=== PATIENT | female | born 1945 | race Caucasian/White ===

== ENCOUNTER → 2021-04-02 | Outpatient (CLI) | payer MEDICARE, BC ==
[~2021-04-02] MED LIST: ASPI81TA26 PO; ATOR40TA75 PO; CIPR-249 PO; CO Q10CA PO; CVS1CAP5 PO; CYMB60CA4 PO; D32000TA2 PO; DICL1GEL3 TOP; FISH100049 PO; GABA-282 PO; LEVO88TA3 PO; MONT10TA10 PO; PARO20TA3 PO; PROBCAP4 PO; ROSU20TA5 PO; ROXI1TAB2 PO; SUMA100T2 PO; TRAZ-252 PO; VANC125C10 PO; VITA500046 PO; VOLT1GEL15 TD; magnesium PO
[2021-04-07 16:08] LABS: Chitobioside Carbohydrat (ACCA 41 units (0-90); Laminaribioside Carbohyd (ALCA 18 units (0-60); Mannobioside Carbohydrat (AMCA 50 units (0-100); Saccharomyces cerevisiae IgG A 77 units (0-50)
== END ==
LOC: M LAB 13:26
PROVIDERS: ATTEND Surgery
DX: R19.7 Diarrhea, unspecified (principal)

== ENCOUNTER → 2021-04-05 | Outpatient (REF) | payer MEDICARE, BC ==
[~2021-04-05] MED LIST changes: -CVS1CAP5 PO; -D32000TA2 PO; -DICL1GEL3 TOP; -GABA-282 PO; -MONT10TA10 PO; -PARO20TA3 PO; -ROSU20TA5 PO; -SUMA100T2 PO; -TRAZ-252 PO; -VANC125C10 PO
== END ==
LOC: M LAB REF 11:07
PROVIDERS: ATTEND Physician Assistant
DX: R10.32 Left lower quadrant pain (principal)

== ENCOUNTER → 2021-04-08 | Outpatient (CLI) | payer MEDICARE, BC ==
[~2021-04-08] MED LIST changes: +CVS1CAP5 PO; +D32000TA2 PO; +DICL1GEL3 TOP; +GABA-282 PO; +MONT10TA10 PO; +PARO20TA3 PO; +ROSU20TA5 PO; +SUMA100T2 PO; +TRAZ-252 PO; +VANC125C10 PO
--- NOTE | 2021-04-08 16:19 | REP ---
INDICATION: LLQ PAIN. COMPARISON: None. TECHNIQUE: Transabdominal and transvaginal ultrasound evaluation of the pelvis was performed. FINDINGS: The uterus is surgically absent. The ovaries are not visualized. There are no abnormal pelvic masses or fluid collections. IMPRESSION: No pelvic abnormalities identified. <Electronically signed by Baron Mendez > 04/08/21 4510
== END ==
LOC: M RAD 15:05
PROVIDERS: ATTEND Surgery
DX: R10.32 Left lower quadrant pain (principal)

== ENCOUNTER → 2021-04-22 | Outpatient (CLI) | payer MEDICARE, BC | LOC: M LABSMTC 10:09 | PROVIDERS: ATTEND Anesthesiology | DX: Z01.818 Encounter for other preprocedural examination (principal); Z11.52 Encounter for screening for COVID-19 ==

== ENCOUNTER 2021-04-27 11:26 | Day surgery (SDC) | payer MEDICARE, BC ==
[~2021-04-27] VITALS: Ht 160 cm; Wt 49.2 kg
[~2021-04-27 11:26] MED LIST changes: +NS 1,000 ML IV ONE
--- OUTSIDE RECORDS SUMMARY | 2021-04-27 11:34 | CCD | Continuity of Care Document ---
Author Author Samira BROOKS Organization Unknown Address [address] [facility] [address] [place] [address] Phone [phone] Care Team Providers Care Metal Treater Name Role Phone ROSAURA BROOKS AUTM [phone] Problems Active Problems Provider Date Essential hypertension Onset: 04/01/2021 Social History Type Date Description Comments Sex Unknown ETOH Use Denies alcohol use Tobacco Use Start: Unknown Patient has never smoked Recreational Drug Use Denies Drug Use Allergies and adverse reactions Description No Known Drug Allergies Medications Active Medications SIG Qnty Indications Ordering Provide r Date Levothyroxine Sodium 100mcg Tablet s 1 by mouth every day 30tabs AMELIA Schumacher 2020 Diclofenac Sodium 1% Gel u se as needed AMELIA Schumacher 04/01/2021 Paroxetine HCL 20mg Tablets Take One Tablet By Mouth Daily Unknown Montelukast Sodium 10mg Tablets Take One Tablet By Mouth Daily Unknown Rosuvastatin Calcium 20mg Tablets Take One Tablet By Mouth Daily Unknown Trazodone HCL 50mg Tablets Take Two Tablets By Mouth Daily Unknown 0 Vital Signs Date Vital Result Comment 03/08/2021 11:29am Height 60 inches 5'0" Weight 114.00 lb BMI (Body Mass Index) 22.3 kg/m2 BP Systolic 108 mmHg BP Diastolic 72 mmHg Heart Rate 70 /min Respiratory Rate 16 /min Results Test Acquired Date Facility Test Result H/L Range Note IBD Serology 04/02/[address] [id number] [phone] Saccharomyces cerevisiae IgG A 77 units High 0 -50 1 Chitobioside Carbohydrat (Acca 41 units Normal 0-90 2 Laminaribioside Carbohyd (Alca 18 units Normal 0-60 3 Mannobioside Carbohydrat (Amca 50 units Normal 0-100 4 Atypical p-Anca Negative Normal Negative IBD Test Information (SEE NOTE) Abnormal . 5 1 Negative <45 Equivocal 45 - 50 Positive >50 2 Negative <80 Equivocal 80 - 90 Positive >90 3 Negative <55 Equivocal 55 - 60 Positive >60 4 Negative < 90 Equivocal 90 - 100 Positive >100 . This test was developed and its performance characteristics determined by [facility]. It has not been cleared or approved by the Food and Drug Administration. The FDA has determined that such clearance or approval is not necessary. 5 Suggestive of Crohn's Diseas e. Pattern is not conclusive for disease behavior risk stratification. Performed at: [address] [id number] Clinical Quality Analyst: Mckenna Middleton MD, Phone: [phone] Procedures Date Code Description Status 04/07/2021 75132 Office/Outpatient Established Lo w MDM 20-29 Min Completed 03/08/2021 66540 Office/Outpatient Established Lo w MDM 20-29 Min Completed Encounters Type Date Location Provider Dx Diagnosis Office Visit 04/07/2021 10:30a [facility] AMELIA Carrillo I10 Essential (primary) hyperten ashly E78.5 Hyperlipidemia, unspecified E03.9 Hypothyroidism, unspecified Office Visit 03/08/2021 12:00p [facility] AMELIA Carrillo R10.814 Left lower quadrant abdomina l tenderness I10 Essential (primary) hyperten ashly E03.9 Hypothyroidism, unspecified Assessments Date Code Description Provider 04/07/2021 I10 Essential (primary) hypertension AMELIA Schumacher 04/07/2021 E78.5 Hyperlipidemia, unspecified AMELIA Agee 04/07/2021 E03.9 Hypothyroidism, unspecified AMELIA Agee 03/09/2021 I10 Essential (primary) hypertension AMELIA Schumacher 03/09/2021 E78.5 Hyperlipidemia, unspecified AMELIA Agee 03/09/2021 E03.9 Hypothyroidism, unspecified AMELIA Agee 03/08/2021 R10.814 Left lower quadrant abdominal te nderness AMELIA Schumacher 03/08/2021 I10 Essential (primary) hypertension AMELIA Schumacher 03/08/2021 E03.9 Hypothyroidism, unspecified AMELIA Agee Plan of Treatment Future Appointment(s):* 07/08/2021 10:00 am - AMELIA Rice at [facility] Referrals Refer to Reason for Referral Status Appt Date Mckinley Bishop JR PATIENT WITH UNEXPLAINED SEV ERE ABDOMINAL PAIN, UNCONTROLLABLE DIARRHEA TIMES SEVERAL WEEKS GETTING WORSE. CT. ABDOMEN PELVIS NEGATIVE . PLEASE EVAL AND TREAT/SCOPE. Sent [address]26 [facility] [address] [place] [address] [phone]
--- OUTSIDE RECORDS SUMMARY | 2021-04-27 11:34 | CCD | Continuity of Care Document ---
Author Author Samira CHAWLA M.D Organization Unknown Address [address] [facility], [address] [place] [address] Phone [phone] Care Team Providers Care Supervisor Home Energy Consultant Name Role Phone Vladimir Collado AUTM AUTM Unavailable Problems Active Problems Provider Date Essential hypertension Mckinley Bishop JR, MD Onset: 03/29/20 21 Social History Type Date Description Comments Sex Unknown ETOH Use Denies alcohol use Tobacco Use Start: Unknown Denies Smoking Recreational Drug Use Denies Drug Use Allergies and adverse reactions Description No Known Drug Allergies Medications Active Medications SIG Qnty Indications Ordering Provide r Date Gabapentin 300mg Capsules 1 po bid for 1 week then tid 90caps Mckinley Bishop JR, MD 03/29/2021 Rosuvastatin Calcium 20mg Tablets every day Unknown Paroxetine HCL 20mg Tablets e very day Unknown Montelukast Sodium 10mg Tablets every day 90tabs Unknown Trazodone HCL 50mg Tablets ev flores day Unknown Euthyrox 100mcg Tablets every day Unknown Lisinopril 10mg Tablets 1 by mouth every day Unknown Immunizations Description No Information Available Vital Signs Date Vital Result Comment 04/02/2021 11:45am BP Systolic 112 mmHg BP Diastolic 56 mmHg Body Temperature 96.1 F Height 60 inches 5'0" Weight 109.25 lb BMI (Body Mass Index) 21.3 kg/m2 [place] Body Weight 100 lb Weight 49.556 kg BSA (Body Surface Area) 1.44 m2 03/29/2021 10:33am BP Systolic 118 mmHg BP Diastolic 60 mmHg Body Temperature 98.5 F Height 60 inches 5'0" Weight 112.25 lb BMI (Body Mass Index) 21.9 kg/m2 [place] Body Weight 100 lb Weight 50.917 kg BSA (Body Surface Area) 1.46 m2 Results Description No Information Available Procedures Date Code Description Status 03/29/2021 65948 Office/Outpatient New Moderate M DM 45-59 Minutes Completed Medical Devices Description No Information Available Encounters Type Date Location Provider Dx Diagnosis Office Visit 03/29/2021 10:15a [facility] Mckinley delgado JR, MD R10.32 Left lower quadrant pain Assessments Date Code Description Provider 03/29/2021 R10.32 Left lower quadrant pain Mckinley Bishop JR, MD Plan of Treatment 03/29/2021 - Mckinley Bishop JR, MD* R10.32 Left lower quadrant pain* Comments:* Patient is here for some abdominal pain and left lower quadrant at this point I am not able to determine whether this is GI related initially if she was still having the diarrhea I could explain this pain being somehow referred pain from some type of colitis or inflammatory process but without the diarrhea and without GI complaints it seems less likely that this is the etiology for this specific issue. Once again she was treated for infectious etiology and did not improve she was treated for colitis issues and this pain did not improve and thus now are stuck with pain of undetermined etiology. It is not unreasonable to proceed with an upper and lower endoscopy on her for additional testing but it seems like this is unrelated to the abdominal pain that she is having at this time. Thus I feel that a referral to the pain clinic at this point is reasonable for additional recommendations. I have instructed her that it is also reasonable if she would like to be evaluated for a second opinion although I am not sure who would be providing that i.e. GI or general surgery. She at this point is concerned about the pain and having undetermined etiology and I agree with her that it is reasonable to continue with some evaluation. I will start her on some gabapentin to see if this is associated with some unusual presentation of a herpetic neuralgia without evidence of blisters/zoster blisters. Functional Status Description No Information Available Mental Status Description No Information Available Referrals Refer to Reason for Referral Status Appt Date Mckinley Bishop JR, MD ABD PAIN Scheduled [address] [place] [phone]
--- OUTSIDE RECORDS SUMMARY | 2021-04-27 11:34 | CCD | Continuity of Care Document ---
Author Author Samira BROOKS Organization Unknown Address [address] [facility] [address] [place] [address] Phone [phone] Care Team Providers Care Occupational Health Physician Name Role Phone ROSAURA BROOKS AUTM Social History Type Date Description Comments Sex Unknown Assessments Date Code Description Provider 03/09/2021 I10 Essential (primary) hypertension AMELIA Schumacher 03/09/2021 E78.5 Hyperlipidemia, unspecified AMELIA Agee 03/09/2021 E03.9 Hypothyroidism, unspecified AMELIA Agee Plan of Treatment Future Appointment(s):* 04/07/2021 10:30 am - AMELIA Schumacher at [facility]
--- OUTSIDE RECORDS SUMMARY | 2021-04-27 11:34 | CCD | Continuity of Care Document ---
Author Author Samira NAJERA IA Organization Unknown Address [address] [facility], [address] [place] [address] Phone [phone] Care Team Providers Care Gold Beater Name Role Phone Vladimir Collado AUTM [phone] AUTM Unavailable Problems Active Problems Provider Date Essential hypertension Mckinley Bishop JR, MD Onset: 03/29/20 21 Social History Type Date Description Comments Sex Unknown ETOH Use Denies alcohol use Tobacco Use Start: Unknown Denies Smoking Recreational Drug Use Denies Drug Use Allergies and adverse reactions Description No Known Drug Allergies Medications Active Medications SIG Qnty Indications Ordering Provide r Date Vancomycin HCL 125mg Capsules 1 p.o. every 6 hours x10 days 40caps Yoshi Chan M.D. 04/06/2021 Gabapentin 300mg Capsules 1 po bid for [...] lb BMI (Body Mass Index) 21.3 kg/m2 [place] Body Weight 100 lb Weight 49.556 kg BSA (Body Surface Area) 1.44 m2 03/29/2021 10:33am BP Systolic 118 mmHg BP Diastolic 60 mmHg Body Temperature 98.5 F Height 60 inches 5'0" Weight 112.25 lb BMI (Body Mass Index) 21.9 kg/m2 [place] Body Weight 100 lb Weight 50.917 kg BSA (Body Surface Area) 1.46 m2 Results Test Acquired Date Facility Test Result H/L Range Note Gastrointestinal (GI) Panel 04/05/2021 [facility] [address] [place] [address] [phone] Gastrointestinal (GI) Panel This Gastrointes <SEE NOTE > 1 1 This Gastrointestinal PCR Pa gucci detects the following bacteria, parasites and viruses: Campylobacter (jejuni, coli and upsaliensis), Clostridium difficile (toxin A/B), Plesiomonas shigelloides, Salmonella, Yersinia enterocolitica, Vibrio (parahaemolyticus, vulnificus and cholerae), Vibrio clolerae, Enteroaggregative E. coli (EAEC), Enteropathogenis E. coli (EPEC), Enterotoxigenic E. coli (ETEC) it/st, Shiga-like producing E. coli (STEC) stx1/stc2, E.coli O157, Shigella/Enteroinvasive E. coli (EIEC), Cryptosporidium, Cyclospora cayetanensis, Entamoeba histolytica, Giardia lamblia, Adenovirus F 40/41, Astrovirus, Norovirus GI/GII, Rotavirus A and Sapovirus (I, II, IV, V). One negative specimen does not rule out the possibility of a parasitic infection. POSITIVE by MULTIPLEXED NUCLEIC ACID PCR ORGANISM 1: CLOSTRIDIUM DIFFICILE A/B UNFORMED stool. Performing testing on formed stool from patients who do not have CDI symptoms detects asymptomatic colonized patients (up to 30% of hospitalized patients are colonized with C. difficile). Patients with false positive results may be given unnecessary treatment, placed on contact isolation, and be at increased risk of vancomycin resistant enterococci. ORGANISM 1: CLOSTRIDIUM DIFFICILE A/B Procedures Date Code Description Status 03/29/2021 97942 Office/Outpatient New Moderate M DM 45-59 Minutes Completed Medical Devices Description No Information Available Encounters Type Date Location Provider Dx Diagnosis Office Visit 03/29/2021 10:15a [facility] Mckinley delgado JR, MD R10.32 Left lower quadrant pain Assessments Date Code Description Provider 03/29/2021 R10.32 Left lower quadrant pain Mckinley Bishop JR, MD Plan of Treatment Future Appointment(s):* 05/10/2021 10:15 am - Yoshi Chan M.D. at [facility] * 04/27/2021 2:20 pm - Yoshi Chan M.D. at [facility] 03/29/2021 - Mckinley Bishop JR, MD* R10.32 [...] Bishop JR, MD ABD PAIN Scheduled [address] [place] [phone] [phone]
--- OUTSIDE RECORDS SUMMARY | 2021-04-27 11:34 | CCD | Continuity of Care Document ---
Author Author Samira CHAWLA M.D Organization Unknown Address [address] [facility], [address] [place] [address] Phone [phone] Care Team Providers Care Robot Operator Name Role Phone Vladimir Collado AUTM AUTM [...] lb BMI (Body Mass Index) 21.3 kg/m2 [place] Body Weight 100 lb Weight 49.556 kg BSA (Body Surface Area) 1.44 m2 03/29/2021 10:33am BP Systolic 118 mmHg BP Diastolic 60 mmHg Body Temperature 98.5 F Height 60 inches 5'0" Weight 112.25 lb BMI (Body Mass Index) 21.9 kg/m2 [place] Body Weight 100 lb Weight 50.917 kg BSA (Body Surface Area) 1.46 m2 Results Description No Information Available Procedures Date Code Description Status 03/29/2021 27377 Office/Outpatient New Moderate M DM 45-59 Minutes Completed Medical Devices Description No Information Available Encounters Type Date Location Provider Dx Diagnosis Office Visit 03/29/2021 10:15a [facility] Mckinley delgado JR, MD R10.32 [...] Bishop JR, MD ABD PAIN Scheduled [address] [place] [phone]
--- OUTSIDE RECORDS SUMMARY | 2021-04-27 11:34 | CCD | Continuity of Care Document ---
Author Author Samira BROOKS Organization Unknown Address [address] [place] [address] Phone [phone] Care Team Providers Care Saloonkeeper Name Role Phone ROSAURA BROOKS AUTM Social History Type Date Description Comments Sex Unknown Procedures Date Code Description Status 03/08/2021 16840 Office/Outpatient Established Lo w MDM 20-29 Min Completed Encounters Type Date Location Provider Dx Diagnosis Office Visit 03/08/2021 12:00p [facility] AMELIA Carrillo R10.814 Left lower quadrant abdomina l tenderness I10 Essential (primary) hyperten ashly E03.9 Hypothyroidism, unspecified Assessments Date Code Description Provider 03/09/2021 I10 Essential (primary) hypertension AMELIA Schumacher 03/09/2021 E78.5 Hyperlipidemia, unspecified AMELIA Agee 03/09/2021 E03.9 Hypothyroidism, unspecified AMELIA Agee 03/08/2021 R10.814 Left lower quadrant abdominal te nderness AMELIA Schumacher 03/08/2021 I10 Essential (primary) hypertension AMELIA Schumacher 03/08/2021 E03.9 Hypothyroidism, unspecified AMELIA Agee Plan of Treatment Future Appointment(s):* 04/07/2021 10:30 am - AMELIA Schumacher at [facility]
--- OUTSIDE RECORDS SUMMARY | 2021-04-27 11:34 | CCD | Continuity of Care Document ---
Author Author Samira BROOKS Organization Unknown Address [address] [place] [address] Phone [phone] Care Team Providers Care Pesticide Control Inspector Name Role Phone ROSAURA BROOKS AUTM [phone] Problems Active Problems Provider Date Essential [...] Rate 70 /min Respiratory Rate 16 /min Procedures Date Code Description Status 03/08/2021 19507 Office/Outpatient Established Lo w MDM 20-29 Min Completed Encounters Type Date Location Provider Dx Diagnosis Office Visit 03/08/2021 12:00p [facility] AMELIA Carrillo R10.814 Left lower quadrant abdomina [...] Schumacher 03/08/2021 E03.9 Hypothyroidism, unspecified AMELIA Agee Referrals Refer to Reason for Referral Status Appt Date Mckinley Bishop JR PATIENT WITH UNEXPLAINED SEV ERE ABDOMINAL PAIN, UNCONTROLLABLE DIARRHEA TIMES SEVERAL WEEKS GETTING WORSE. CT. ABDOMEN PELVIS NEGATIVE . PLEASE EVAL AND TREAT/SCOPE. Sent 826 [facility] [address] [place] [address] [phone]
--- OUTSIDE RECORDS SUMMARY | 2021-04-27 11:34 | CCD | Continuity of Care Document ---
Author Organization Unknown Address Unknown Phone Unavailable Care Team Providers Care Brake Linings Coater Name Role Phone ROSAURA BROOKS AUTM Problems Active Problems Provider Date Essential hypertension [...] Result H/L Range Note IBD Serology 04/02/[address] [id number] [phone] Saccharomyces cerevisiae IgG A 77 units High [...] for disease behavior risk stratification. Performed at: [address] [id number] Assessment Technician: Mckenna Middleton MD, Phone: [phone] Procedures Date Code Description Status 04/07/2021 00423 Office/Outpatient Established Lo w MDM 20-29 Min Completed 03/08/2021 42836 Office/Outpatient Established Lo w MDM 20-29 Min Completed Encounters Type Date Location Provider Dx Diagnosis Office Visit 04/07/2021 10:30a [facility] AMELIA Carrillo I10 Essential (primary) hyperten ashly E78.5 Hyperlipidemia, unspecified E03.9 Hypothyroidism, unspecified Office Visit 03/08/2021 12:00p [facility] AMELIA Carrillo R10.814 Left lower quadrant abdomina l tenderness I10 Essential (primary) hyperten ashly E03.9 Hypothyroidism, unspecified Assessments Date Code Description Provider 04/07/2021 I10 Essential (primary) hypertension AMELIA Schumacher 04/07/2021 E78.5 Hyperlipidemia, unspecified [place] AMELIA Lieberman 04/07/2021 E03.9 Hypothyroidism, unspecified AMELIA Agee 03/09/2021 I10 Essential (primary) hypertension AMELIA Schumacher 03/09/2021 E78.5 Hyperlipidemia, unspecified AMELIA Agee 03/09/2021 E03.9 Hypothyroidism, unspecified AMELIA Agee 03/08/2021 R10.814 Left lower quadrant abdominal te nderness AMELIA Schumacher 03/08/2021 I10 Essential (primary) hypertension AMELIA Schumacher 03/08/2021 E03.9 Hypothyroidism, unspecified [place] AMELIA Lieberman Plan of Treatment Future Appointment(s):* 07/08/2021 10:00 am - AMELIA Rice at [facility] Referrals Refer to Reason for Referral Status Appt Date Mckinley Bishop JR PATIENT WITH UNEXPLAINED SEV ERE ABDOMINAL PAIN, UNCONTROLLABLE DIARRHEA TIMES SEVERAL WEEKS GETTING WORSE. CT. ABDOMEN PELVIS NEGATIVE . PLEASE EVAL AND TREAT/SCOPE. Sent 826 [place] [address] [phone]
--- OUTSIDE RECORDS SUMMARY | 2021-04-27 11:34 | CCD ---
Continuity of Care Document (CCD) Created on: 04/01/2021 FionaSamira External Reference #: [id number] : [id number] Sex: Female Author Author Samira BISHOP MD Organization Unknown Address [address] [address] Phone [phone] Care Team Providers Care Jira Developer Name Role Phone Vladimir Collado AUTM [phone] AUTM Unavailable Problems Active Problems Provider Date Essential hypertension Mckinley Bishop JR, MD Onset: 03/29/20 Social History Type Date Description Comments Sex [...] Available Vital Signs Date Vital Result Comment 03/29/2021 10:33am BP Systolic 118 mmHg BP Diastolic 60 mmHg Body Temperature 98.5 F Height 60 inches 5'0" Weight 112.25 lb BMI (Body Mass Index) 21.9 kg/m2 [place] Body Weight 100 lb Weight 50.917 kg BSA (Body Surface Area) 1.46 m2 Results Description No Information Available Procedures Date Code Description Status 03/29/2021 91251 Office/Outpatient New Moderate M DM 45-59 Minutes Completed Medical Devices Description No Information Available Encounters Type Date Location Provider Dx Diagnosis Office Visit 03/29/2021 10:15a [facility] Mckinley delgado JR, MD R10.32 Left lower quadrant pain Assessments Date Code Description Provider 03/29/2021 R10.32 Left lower quadrant pain Mckinley Bishop JR, MD Plan of Treatment Future Appointment(s):* 04/02/2021 11:30 am - Yoshi Chan M.D. at [facility] 03/29/2021 - Mckinley Bishop JR, MD* R10.32 [...] Bishop JR, MD ABD PAIN Scheduled [address] [address] [phone]
--- OUTSIDE RECORDS SUMMARY | 2021-04-27 11:34 | CCD | Continuity of Care Document ---
Author Author Samira BISHOP MD Organization Unknown Address [address] [place] [address] Phone [phone] Care Team Providers Care Collision Estimator Name Role Phone Vladimir Collado AUTM [phone] Problems Active Problems Provider Date Essential hypertension Mckinley Bishop JR, MD Onset: 03/29/20 21 Social History Type Date Description Comments Sex Unknown ETOH Use Denies alcohol use Tobacco Use Start: Unknown Denies Smoking Recreational Drug Use Denies Drug Use Allergies and adverse reactions Description No Known Drug Allergies Medications Active Medications SIG Qnty Indications Ordering Provide r Date Rosuvastatin Calcium 20mg Tablets every day Unknown [...] lb BMI (Body Mass Index) 21.9 kg/m2 [place] Body Weight 100 lb Weight 50.917 kg BSA (Body Surface Area) 1.46 m2 Results Description No Information Available Procedures Description No Information Available Medical Devices Description No Information Available Encounters Description No Information Available Assessments Description No Information Available Plan of Treatment No Information Available Functional Status Description No Information Available Mental Status Description No Information Available Referrals Refer to Reason for Referral Status Appt Date Mckinley Bishop JR, MD ABD PAIN Scheduled [address] [address] [phone]
--- OUTSIDE RECORDS SUMMARY | 2021-04-27 11:35 | CCD ---
Author Author [facility] Organization [facility] Address Unknown Phone Unavailable Care Team Providers Care Deputy Sheriff Name Role Phone TONTARSKI, G ROSAURA PA Unavailable Unavailable TONTARSKI, G ROSAURA PA Unavailable Unavailable TONTARSKI, G ROSAURA PA Unavailable Unavailable TONTARSKI, G ROSAURA PA Unavailable Unavailable TONTARSKI, G ROSAURA PA Unavailable Unavailable TONTARSKI, G ROSAURA PA Unavailable Unavailable TONTARSKI, G ROSAURA PA Unavailable Unavailable TONTARSKI, G ROSAURA PA Unavailable Unavailable TONTARSKI, G ROSAURA PA Unavailable Unavailable TONTARSKI, G ROSAURA PA Unavailable Unavailable TONTARSKI, G ROSAURA PA Unavailable Unavailable TONTARSKI, G ROSAURA PA Unavailable Unavailable TONTARSKI, G ROSAURA PA Unavailable Unavailable TONTARSKI, G ROSAURA PA Unavailable Unavailable TONTARSKI, G ROSAURA PA Unavailable Unavailable TONTARSKI, G ROSAURA PA Unavailable Unavailable TONTARSKI, G ROSAURA PA Unavailable Unavailable TONTARSKI, G ROSAURA PA Unavailable Unavailable TONTARSKI, G ROSAURA PA Unavailable Unavailable TONTARSKI, G ROSAURA PA Unavailable Unavailable TONTARSKI, G ROSAURA PA Unavailable Unavailable TONTARSKI, G ROSAURA PA Unavailable Unavailable TONTARSKI, G ROSAURA PA Unavailable Unavailable TONTARSKI, G ROSAURA PA Unavailable Unavailable TONTARSKI, G ROSAURA PA Unavailable Unavailable TONTARSALLIE, G ROSAURA PA Unavailable Unavailable TONTARSALLIE, G ROSAURA PA Unavailable Unavailable TONTARSALLIE, G ROSAURA PA Unavailable Unavailable TONTARSALLIE, G ROSAURA PA Unavailable Unavailable TONTARSALLIE, G ROSAURA PA Unavailable Unavailable TONTARSALLIE, G ROSAURA PA Unavailable Unavailable TONTARSALLIE, G ROSAURA PA Unavailable Unavailable TONTARSALLIE, G ROSAURA PA Unavailable Unavailable TONTARSALLIE, G ROSAURA PA Unavailable Unavailable TONTARSALLIE, G ROSAURA PA Unavailable Unavailable TONTARSALLIE, G ROSAURA PA Unavailable Unavailable TONTARSALLIE, G ROSAURA PA Unavailable Unavailable TONTARSALLIE, G ROSAURA PA Unavailable Unavailable TONTARSALLIE, G ROSAURA PA Unavailable Unavailable TONTARSALLIE, G ROSAURA PA Unavailable Unavailable TONTARSALLIE, G ROSAURA PA Unavailable Unavailable TONTARSALLIE, G ROSAURA PA Unavailable Unavailable TONTARSALLIE, G ROSAURA PA Unavailable Unavailable TONTARSALLIE, G ROSAURA PA Unavailable Unavailable TONTARSALLIE, G ROSAURA PA Unavailable Unavailable TONTARSALLIE, G ROSAURA PA Unavailable Unavailable TONTARSALLIE, G ROSAURA PA Unavailable Unavailable TONTARSALLIE, G ROSAURA PA Unavailable Unavailable TONTARSALLIE, G ROSAURA PA Unavailable Unavailable TONTARSALLIE, G ROSAURA PA Unavailable Unavailable TONTARSALLIE, G ROSAURA PA Unavailable Unavailable TONTARSALLIE, G ROSAURA PA Unavailable Unavailable TONTARSALLIE, G ROSAURA PA Unavailable Unavailable TONTARSALLIE, G ROSAURA PA Unavailable Unavailable TONTARSALLIE, G ROSAURA PA Unavailable Unavailable TONTARSALLIE, G ROSAURA PA Unavailable Unavailable TONTARSALLIE, G ROSAURA PA Unavailable Unavailable TONTARSALLIE, G ROSAURA PA Unavailable Unavailable TONTARSALLIE, G ROSAURA PA Unavailable Unavailable TONTARSALLIE, G ROSAURA PA Unavailable Unavailable TONTARSALLIE, G ROSAURA PA Unavailable Unavailable TONTARSALLIE, G ROSAURA PA Unavailable Unavailable TONTARSALLIE, G ROSAURA PA Unavailable Unavailable TONTARSALLIE, G ROSAURA PA Unavailable Unavailable TONTARSALLIE, G ROSAURA PA Unavailable Unavailable TONTARSALLIE, G ROSAURA PA Unavailable Unavailable TONTARSKI, G ROSAURA PA Unavailable Unavailable TONTARSKI, G ROSAURA PA Unavailable Unavailable TONTARSKI, G ROSAURA PA Unavailable Unavailable TONTARSKI, G ROSAURA PA Unavailable Unavailable TONTARSKI, G ROSAURA PA Unavailable Unavailable TONTARSKI, G ROSAURA PA Unavailable Unavailable TONTARSKI, G ROSAURA PA Unavailable Unavailable TONTARSKI, G ROSAURA PA Unavailable Unavailable TONTARSKI, G ROSAURA PA Unavailable Unavailable TONTARSKI, G ROSAURA PA Unavailable Unavailable TONTARSKI, G ROSAURA PA Unavailable Unavailable TONTARSKI, G ROSAURA PA Unavailable Unavailable TONTARSKI, G ROSAURA PA Unavailable Unavailable TONTARSKI, G ROSAURA PA Unavailable Unavailable TONTARSKI, G ROSAURA PA Unavailable Unavailable TONTARSKI, G ROSAURA PA Unavailable Unavailable TONTARSKI, G ROSAURA PA Unavailable Unavailable TONTARSKI, G ROSAURA PA Unavailable Unavailable TONTARSKI, G ROSAURA PA Unavailable Unavailable TONTARSALLIE, G ROSAURA PA Unavailable Unavailable TONTARSKI, G ROSAURA PA Unavailable Unavailable TONTARSALLIE, G ROSAURA PA Unavailable Unavailable TONTARSALLIE, G ROSAURA PA Unavailable Unavailable TONTARSALLIE, G ROSAURA PA Unavailable Unavailable TONTARSALLIE, G ROSAURA PA Unavailable Unavailable TONTARSKI, G ROSAURA PA Unavailable Unavailable TONTARSALLIE, G ROSAURA PA Unavailable Unavailable TONTARSKI, G ROSAURA PA Unavailable Unavailable Becky Bishop JR, MD Unavailable Unavailable Becky Bishop JR, MD Unavailable Unavailable Becky Bishop JR, MD Unavailable Unavailable Becky Bishop JR, MD Unavailable Unavailable Becky Bishop JR, MD Unavailable Unavailable Becky Bishop JR, MD Unavailable Unavailable Becky Bishop JR, MD Unavailable Unavailable Becky Bishop JR, MD Unavailable Unavailable Becky Bishop JR, MD Unavailable Unavailable Becky Bishop JR, MD Unavailable Unavailable Becky Bishop JR, MD Unavailable Unavailable Becky Bishop JR, MD Unavailable Unavailable Becky Bishop JR, MD Unavailable Unavailable Becky Bishop JR, MD Unavailable Unavailable Becky Bishop JR, MD Unavailable Unavailable Becky Bishop JR, MD Unavailable Unavailable Edna JR, J Mckinley MD Unavailable Unavailable Edna JR, J Mckinley MD Unavailable Unavailable Edna JR, J Mckinley MD Unavailable Unavailable Edna JR, J Mckinley MD Unavailable Unavailable Edna JR, J Mckinley MD Unavailable Unavailable Edna JR, J Mckinley MD Unavailable Unavailable Edna JR, J Mckinley MD Unavailable Unavailable Edna JR, J Mckinley MD Unavailable Unavailable Edna JR, J Mckinley MD Unavailable Unavailable Edna JR, J Mckinley MD Unavailable Unavailable Edna JR, J Mckinley MD Unavailable Unavailable Edna JR, J Mckinley MD Unavailable Unavailable Edna JR, J Mckinley MD Unavailable Unavailable Edna JR, J Mckinley MD Unavailable Unavailable Edna JR, J Mckinley MD Unavailable Unavailable Edna JR, J Mckinley MD Unavailable Unavailable Edna JR, J Mckinley Unavailable Unavailable Edna JR, J Mckinley MD Unavailable Unavailable Edna JR, J Mckinley MD Unavailable Unavailable Edna JR, J Mckinley Unavailable Unavailable Edna JR, J Mckinley MD Unavailable Unavailable Edna JR, J Mckinley Unavailable Unavailable Edna JR, J Mckinley Unavailable Unavailable Edna JR, J Mckinley MD Unavailable Unavailable Edna JR, J Mckinley MD Unavailable Unavailable Edna JR, J Mckinley MD Unavailable Unavailable Edna JR, J Mckinley MD Unavailable Unavailable Edna JR, J Mckinley MD Unavailable Unavailable Edna JR, J Mckinley Unavailable Unavailable Edna JR, J Mckinley MD Unavailable Unavailable Edna JR, J Mckinley MD Unavailable Unavailable Edna JR, J Mckinley MD Unavailable Unavailable Edna JR, J Mckinley MD Unavailable Unavailable Edna JR, J Mckinley MD Unavailable Unavailable Edna JR, J Mckinley MD Unavailable Unavailable Edna JR, J Mckinley MD Unavailable Unavailable Edna JR, J Mckinley MD Unavailable Unavailable Edna JR, J Mckinley MD Unavailable Unavailable Edna JR, J Mckinley Unavailable Unavailable Re-disclosure Warning The records that you are about to access may contain information from federally-assisted alcohol or drug abuse programs. If such information is present, then the following federally mandated warning applies: This information has been disclosed to you from records protected by federal confidentiality rules (42 CFR part 2). The federal rules prohibit you from making any further disclosure of this information unless further disclosure is expressly permitted by the written consent of the person to whom it pertains or as otherwise permitted by 42 CFR part 2. A general authorization for the release of medical or other information is NOT sufficient for this purpose. The Federal rules restrict any use of the information to criminally investigate or prosecute any alcohol or drug abuse patient.The records that you are about to access may contain highly sensitive health information, the redisclosure of which is protected by Article 27-F of the [facility] Public Health law. If you continue you may have access to information: Regarding HIV / AIDS; Provided by facilities licensed or operated by the [facility] Office of Mental Health; or Provided by the [facility] Office for People With Developmental Disabilities. If such information is present, then the following [facility] mandated warning applies: This information has been disclosed to you from confidential records which are protected by state law. State law prohibits you from making any further disclosure of this information without the specific written consent of the person to whom it pertains, or as otherwise permitted by law. Any unauthorized further disclosure in violation of state law may result in a fine or care home sentence or both. A general authorization for the release of medical or other information is NOT sufficient authorization for further disc losure. Encounters Encounter Providers Location Date Indications Data Source(s ) Outpatient Attender: ROSAURA Francois Buildchristy barnes 04/07/2021 10:30:00 AM EDT [facility] ([facility]) Outpatient Attender: Mckinley Ortiz/Michelle/Luis/Brodie josue 03/29/2021 10:15:00 AM EDT [facility] Attender: ROSAURA BROOKS PAConsultant: ILENE CISNEROS 03/12/2021 12:52:00 PM EDT - 03/12/2021 01:52:00 PM EDT [facility] Outpatient Attender: ROSAURA Francois Buildin molly 03/08/2021 12:00:00 PM EDT [facility] ([facility]) Medications Medication Brand Name Start Date Product Form Dose Route Admi nistrative Instructions Pharmacy Instructions Status Indications Reaction Description Data Source(s) Vancomycin 125 MG Oral Capsule Vancomycin HCL 04/06/2021 12:00:00 AM E DT active [facility] ([facility], ) Levothyroxine Sodium 0.1 MG Oral Tablet Levothyroxine Sodium 04/01/2021 12:00:00 AM EDT ORAL active [facility] ([facility]) Diclofenac Sodium 0.01 MG/MG Topical Gel Diclofenac Sodium 04/01/2021 12:00:00 AM EDT active [facility] ([facility]ilda Perez [facility]) gabapentin 300 MG Oral Capsule Gabapentin 03/29/2021 12:00:00 AM EDT ORAL active [facility] ([facility], ) Insurance Providers Payer name Policy type / Coverage type Policy ID Covered green party ID Covered green party's relationship to melgar Policy Melgar Plan Information MEDICARE [id number] SP [id number] D MEDICARE A [id number] Self [id number] D [facility] C [id number] Self [id number] BLUE CROSS BLUE SHIELD -O/P [id number] 18 [id number] MEDICARE PART A -O/P [id number] 18 [id number] [place] [id number] SP [id number] ANS-Medicare Part B [id number] [place] [id number] SP [id number] ANSI-Commercial [id number] MEDICARE [id number] SP [id number] [place] [id number] SP [id number] Problems, Conditions, and Diagnoses Code Display Name Description Problem Type Effective Dates Data Source(s) R911 Solitary pulmonary nodule Solitary pulmonary nodule Di agnosis 03/12/2021 12:52:00 PM EDT [facility] 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 Diagnosis 03/12/2021 12:52:00 PM EDT [facility] K5730 Diverticulosis of large inte srini without perforation or abscess without bleeding Diverticulosis of large intestine withou t perforation or abscess without bleeding Diagnosis 03/12/2021 12:52:00 PM EDT [facility] K4090 Unilateral inguinal hernia, without obstruction or gangrene, not specified as recurrent Unilateral inguinal hernia, without obst ruction or gangrene, not specified as recurrent Diagnosis 03/12/2021 12:52:00 PM EDT [facility] R1032 Left lower quadrant pain Left lower quadrant pain Diag nosis 03/12/2021 12:52:00 PM EDT [facility] [id number] Essential hypertension Essential hypertension Problem 04/01/2021 12:00:00 AM EDT [facility] ([facility] Perez [facility]) [id number] Essential hypertension Essential hypertension Problem 03/29/2021 12[facility] Surgeries/Procedures Procedure Description Date Indications Data Source(s) OFFICE OUTPATIENT VISIT 15 MINUTES 04/07/2021 12:00:00 AM EDT [facility] ([facility]) OFFICE OUTPATIENT NEW 45 MINUTES 03/29/2021 12:00:00 A M [facility] OFFICE OUTPATIENT VISIT 15 MINUTES 03/08/2021 12:00:00 AM EDT [facility] ([facility]) Results ID Date Data Source [id number] 04/05/2021 09:00:00 AM [facility] Name Value Range Interpretation Code Description Data Luisa rce(s) Supporting Document(s) Gastrointestinal (GI) Panel Laboratory test result [facility] ([facility]) This Gastrointestinal PCR Panel detects the following bacteria, parasites and viruses: [...] resistant enterococci. ORGANISM 1: CLOSTRIDIUM DIFFICILE A/B ID Date Data Source [id number] 04/02/2021 01:47:00 PM EDT [facility] ([facility]) Name Value Range Interpretation Code Description Data Luisa rce(s) Supporting Document(s) Laboratory test finding (navigational concept) 77 units 0-50 Above high normal [facility] ([facility]) <content>Negative <45</content><b r/><content>Equivocal 45 - 50</content>
<content>Positive >50</content>
<content></content> Laboratory test finding (navigational concept) 41 units 0 -90 Normal (applies to non-numeric results) [facility] ([facility] Perez [facility]) <content>Negative <80</content><b r/><content>Equivocal 80 - 90</content>
<content>Positive >90</content>
<content></content> Laboratory test finding (navigational concept) 18 units 0 -60 Normal (applies to non-numeric results) [facility] ([facility] Perez [facility]) <content>Negative <55</content><b r/><content>Equivocal 55 - 60</content>
<content>Positive >60</content>
<content></content> Laboratory test finding (navigational concept) 50 units 0 -100 Normal (applies to non-numeric results) [facility] ([facility]) <content>Negative < 90</content>< br/><content>Equivocal 90 - 100</content>
<content>Positive >100</content>
<content>.</content>
<content>This test was developed and its performance</content>
<content>characteristics determined by [facility]. It has not</content>
<content>been cleared or approved by the Food and Drug</content>
<content>Administration. The FDA has determined that such</content>
<content>clearance or approval is not necessary.</content>
<content></content> Laboratory test finding (navigational concept) Laboratory test r esult Normal (applies to non-numeric results) [facility] ([facility]) Laboratory test finding (navigational concept) Laboratory test r esult Abnormal (applies to non-numeric results) [facility] ([facility]) Suggestive of Crohn's Disease. Pattern is not conclusive for disease behavior risk stratification. Performed at: [address] [id number] Firestopper Technician: Mckenna Middleton MD, Phone: [phone] ID Date Data Source [id number] 03/13/2021 06:15:00 [place] [address] PHONE: [phone] FAX: [phone] Name .................. : MURRAY TIRADO Acct Number.................. : [id number] ROOM. ................. : MR Number ................... : [id number] Stay type ............. : O/P Discharge Date......... ... : 03/12/21 Admit Date ....... .. : 03/12/21 Admit Phys .................... : CECILIA Date of ....... : 1945 Family Phys ................... : CECILIA Phone .................. : [phone] Age ................................ : 75 Film# .................. .:[id number] Sex ................................. : F Unsigned transcriptions are preliminary reports and do not represent a medical or legal document CT ABD & PELVIS W/ IV ONLY [id number] COMPLETE:03/12/21 18:51 MEGAN [id number] Reason for Exam: LEFT LOWER ABD PAIN CT ABDOMEN AND PELVIS WITH IV CONTRAST INDICATION: Left lower abdominal pain COMPARISON: None IV CONTRAST: 75 cc Isovue-370 One or more of the following dose reduction techniques were utilized in effectively lowering the radiation dose for this examination: Automated Exposure Control, Adjustment of the mA and/or kV according to patient size, or Iterative reconstruction. FINDINGS: LUNG BASES: 4 mm right lower lobe noncalcified nodule predominantly solid. Basilar atelectasis/scar. No pleural effusions. Small amount of pericardial fluid. Coronary artery calcification. LIVER/BILIARY: Unremarkable liver and gallbladder. SPLEEN: Normal. PANCREAS: Normal. ADRENALS: Normal bilaterally. KIDNEYS/: Multifocal renal parenchymal scarring mild on the right and moderate on the left. At least 2 left renal arteries. This exam technique will not be reliable for assessing renal artery stenosis. Bilateral subcentimeter hypodensities too small to characterize. No hydronephrosis. Grossly normal bladder. Uterus removed. No abnormally enlarged adnexal structures. [address] [facility] [address] [place] [address] [place] [address] PHONE: [phone] FAX: [phone] Name .................. : MURRAY TIRADO Acct Number.................. : [id number] ROOM. ................. : Number ................... : [id number] Stay type ............. : O/P Discharge Date......... ... : 03/12/21 Admit Date ......... : 03/12/21 Admit Phys .................... : Fixya Date of ....... : 1945 Family Phys ................... : Fixya Phone .................. : [phone] Age ................................ : 75 Film# .................. .:[id number] Sex ................................. : F Unsigned transcriptions are preliminary reports and do not represent a medical or legal document CT ABD & PELVIS W/ IV ONLY [id number] COMPLETE:03/12/21 18:51 MEGAN [id number] Reason for Exam: LEFT LOWER ABD PAIN BOWEL/GI: Diverticulosis minimal in degree in the sigmoid region. No diverticulitis. No colitis. Appendix not clearly identified. No indication of appendicitis. No free air or free fluid. No abnormal gastric distention. No abnormally increased stool. Small fat- containing left femoral inguinal. NODES/RETROPERITONEUM: No adenopathy. No AAA. SKELETAL: Minimal degenerative disc and facet change. No compression fractures. Mild convex left lumbar curvature. IMPRESSION: No acute abnormality or definitive etiology for left lower abdominal pain is identified. Small fat- containing left inguinal hernia. Correlate for corresponding symptoms. Bilateral renal parenchymal scarring more pronounced on the left. Minimal diverticulosis without diverticulitis. Hysterectomy. 4 mm right lower lobe noncalcified primarily solid nodule.. Standard recommendations below. [employer] GUID[employer]INES SOLID NODULES SINGLE < 6mm Low Risk: No routine follow-up. High Risk: <6 mm: Optional CT at 12 months. 6-8 mm Low Risk: CT at 6-12 months, then consider CT at 18-24 months. High Risk: 6-8 mm: CT at 6-12 months, then CT at 18-24 months. [address] [facility] [address] [place] [address] PHONE: [phone] FAX: [phone] Name .................. : MURRAY TIRADO Acct Number.................. : [id number] ROOM. ................. : MR Number ................... : [id number] Stay type ............. : O/P Discharge Date......... ... : 03/12/21 Admit Date ......... : 03/12/21 Admit Phys .................... : CECILIA Date of ....... : 1945 Family Phys ................... : Fixya Phone .................. : [phone] Age ................................ : 75 Film# .................. .:[id number] Sex ................................. : Stacie maxwell transcriptions are preliminary reports and do not represent a medical or legal document CT ABD & PELVIS W/ IV ONLY [id number] COMPLETE:03/12/21 18:51 MEGAN [id number] Reason for Exam: LEFT LOWER ABD PAIN >8 mm: Consider CT at 3 months, PET/CT, or tissue sampling. Consider CT at 3 months, PET/CT, or tissue sampling. Nodules <6mm do not require routine follow up, but certain patients at high risk with suspicious nodule morphology, upper lobe location, or both may warrant 12 month follow up. Zygomatic MULTIPLE <6 mm Low Risk: No routine follow-up. High Risk: Optional CT at 12 months. >6 mm Low Risk: CT at 3-6 months, then consider CT at 18-24 months. High Risk: CT at 3-6 months, then at 18-24 months. Use most suspicious nodule as guide to management. Follow up interval may vary according to size and risk. FACTORS TO CONSIDER FOR RISK PER FLEISCHNER/ACCP: Lower: young age, less smoking, smaller nodule size, regular margins, non upper lobe location Higher: older age, heavy smoking including 30pk/yrs within 15 years of quitting, larger nodule size, irregular or spiculated margins, upper lobe location. History of inhalation exposure to asbestos, radon or uranium. Any high risk component should be considered high risk regardless of number of low risk components. Electronically Reviewed and Signed By Bernard Bertrand MD , 03/13/21 18:15, SC[facility] [address] [place] [address] PHONE: [phone] FAX: [phone] Name .................. : MURRAY TIRADO Acct Number.................. : [id number] ROOM. ................. : MR Number ................... : [id number] Stay type ............. : O/P Discharge Date......... ... : 03/12/21 Admit Date ......... : 03/12/21 Admit Phys .................... : CECILIA Date of ....... : 1945 Family Phys ................... : CECILIA Phone .................. : [phone] Age ................................ : 75 Film# .................. .:[id number] Sex ................................. : F Unsigned transcriptions are preliminary reports and do not represent a medical or legal document CT ABD & PEL[place] W/ [place] ONLY [id number] COMPLETE:03/12/21 18:51 MEGAN [id number] Reason for Exam: LEFT LOWER ABD PAIN Transcribe Initials: SONIA , Transcribe Date: 03/12/21 21:33, Dictation Date: Copy for: CECILIA KAPLAN via fax Copy for: [facility] REC Page 4 of 4 Name Value Range Interpretation Code Description Data Luisa rce(s) Supporting Document(s) Procedure Social History No Information Vital Signs ID Date Data Source UNK Name Value Range Interpretation Code Description Data Source(s) Diastolic blood pressure 56 mm[Hg] 56 mm[Hg] [facility] ([facility]) Body surface area Derived from formula 1.44 m2 1.44 m2 [facility] ([facility]) Systolic blood pressure 112 mm[Hg] 112 mm[Hg] [facility] Body temperature 96.1 [degF] 96.1 [degF] [facility] ([facility]) Body height 60 [in_i] 60 [in_i] [facility] ([facility]) 5'0" Body weight 109.25 [lb_av] 109.25 [lb_av] [facility] ([facility]) Body mass index (BMI) [Ratio] 21.3 kg/m2 21.3 k g/m2 [facility] ([facility]) Frohna body weight 100 [lb_av] 100 [lb_av] [facility] ([facility]) Body weight 49.556 kg 49.556 [facility] Body mass index (BMI) [Ratio] 21.9 kg/m2 21.9 k g/m2 [facility] ([facility]) Frohna body weight 100 [lb_av] 100 [lb_av] [facility] ([facility]) Body surface area Derived from formula 1.46 m2 1.46 m2 [facility] ([facility]) Systolic blood pressure 118 mm[Hg] 118 mm[facility]Hg] [facility] Diastolic blood pressure 60 mm[Hg] 60 mm[Hg] [facility] ([facility]) Body temperature 98.5 [degF] 98.5 [degF] [facility] ([facility]) Body height 60 [in_i] 60 [in_i] MEDENT ([facility]) 5'0" Body weight 50.917 kg 50.917 kg [facility] ([facility]) Body weight 112.25 [lb_av] 112.25 [lb_av] MEDEN T ([facility]) Heart rate 70 /min 70 /min MEDENT (Gabino Perez MD) Respiratory rate 16 /min 16 /min MEDENT ( Gabino Perez MD) Body height 60 [in_i] 60 [in_i] MEDENT (Gabino Perez MD) 5'0" Body weight 114.00 [lb_av] 114.00 [lb_av] MEDEN T (Gabino Perez MD) Body mass index (BMI) [Ratio] 22.3 kg/m2 22.3 k g/m2 MEDENT (Gabino Perez MD) Systolic blood pressure 108 mm[Hg] 108 mm[Hg] M EDENT (Gabino Perez MD) Diastolic blood pressure 72 mm[Hg] 72 mm[Hg] LYNDSAY (Gabino Perez MD)
[2021-04-27] MEDS ORDERED: propofoL 200 MG/20 ML VIAL As Ordered ONE (13:01)
[2021-04-27] MEDS ORDERED: LIDOCAINE 1% MDV 20ML VIAL As Ordered ONE (13:01)
--- NOTE | 2021-04-27 14:35 | ROOR ---
Patient Name: Samira Jaimes Procedure Date: 04/27/2021 1:52 PM Date of : 1945 Age: 75 Room: [facility] Gender: Female Note Status: Finalized Procedure: Colonoscopy Indications: Abdominal pain in the left lower quadrant, Diarrhea Providers: Yoshi Chan MD Referring MD: AMELIA Esparza Requesting Provider: Medicines: Monitored Anesthesia Care Complications: No immediate complications. Procedure: Pre-Anesthesia Assessment: - Prior to the procedure, a History and Physical was performed, and patient medications and allergies were reviewed. The patient is competent. The risks and benefits of the procedure and the sedation options and risks were discussed with the patient. All questions were answered and informed consent was obtained. Patient identification and proposed procedure were verified by the physician, the nurse and the production quality manager in the procedure room. Mental Status Examination: alert and oriented. Airway Examination: normal oropharyngeal airway and neck mobility. Prophylactic Antibiotics: The patient does not require prophylactic antibiotics. Prior Anticoagulants: The patient has taken no previous anticoagulant or antiplatelet agents. ASA Grade Assessment: II - A patient with mild systemic disease. After reviewing the risks and benefits, the patient was deemed in satisfactory condition to undergo the procedure. The anesthesia plan was to use monitored anesthesia care (MAC). Immediately prior to administration of medications, the patient was re-assessed for adequacy to receive sedatives. The heart rate, respiratory rate, oxygen saturations, blood pressure, adequacy of pulmonary ventilation, and response to care were monitored throughout the procedure. The physical status of the patient was re-assessed after the procedure. The Colonoscope was introduced through the anus and advanced to the ileocecal valve. The colonoscopy was somewhat difficult due to significant looping. The patient tolerated the procedure well. The quality of the bowel preparation was good. Findings: The perianal and digital rectal examinations were normal. The hepatic flexure revealed moderately excessive looping. The exam was otherwise without abnormality. Impression: - There was significant looping of the colon. - The examination was otherwise normal. - No specimens collected. Recommendation: - Discharge patient to home. - Resume previous diet. - Continue present medications. - Return to my office PRN. Procedure Code(s): --- Professional --- 94751, Colonoscopy, flexible; diagnostic, including collection of specimen(s) by brushing or washing, when performed (separate procedure) Diagnosis Code(s): --- Professional --- R10.32, Left lower quadrant pain R19.7, Diarrhea, unspecified CPT copyright 2019 [employer]. All rights reserved. The codes documented in this report are preliminary and upon crackling press operator review may be revised to meet current compliance requirements. Yoshi Chan MD Yoshi Chan MD 04/27/2021 2:35:33 PM Electronically signed by Yoshi Chan MD Number of Addenda: 0 Note Initiated On: 04/27/2021 1:52 PM Estimated Blood Loss: Estimated blood loss: none.
[2021-04-27 14:50] VITALS: BP 148/68
== END 2021-04-27 15:07 | disposition home or self-care (01) ==
LOC: M OPP 11:26
PROVIDERS: ATTEND Surgery
DX: R10.32 Left lower quadrant pain (principal); R19.7 Diarrhea, unspecified; Z80.0 Family history of malignant neoplasm of digestive organs; Z79.899 Other long term (current) drug therapy

== ENCOUNTER 2021-05-05 15:33 | Outpatient (CLI) | payer MEDICARE, BC ==
[~2021-05-05] VITALS: Ht 152.4 cm; Wt 50.0 kg
[~2021-05-05 15:33] MED LIST changes: -MONT10TA10 PO; +MONT10TA97 PO; -NS 1,000 ML IV ONE
[2021-05-05 16:00] VITALS: BP 111/59
[2021-05-05] MEDS ORDERED: BEZLOTOXUMAB 500 MG in NS 100 ML IV ONE (16:00)
[2021-05-05 17:05] VITALS: BP 119/56
[2021-05-05 17:25] VITALS: BP 115/59
== END 2021-05-05 17:25 | disposition home or self-care (01) ==
LOC: M INFU 15:33
PROVIDERS: ATTEND Internal Medicine Infectious Disease
DX: A04.71 Enterocolitis due to Clostridium difficile, recurrent (principal)
CPT/HCPCS: 96365; J0565

== ENCOUNTER 2022-11-03 03:57 | Emergency (ER) | payer MEDICARE, BC ==
[~2022-11-03 03:57] MED LIST changes: -ACET300T47; -OMEP40CA5
[2022-11-03] MEDS ORDERED: ACET300T47 (04:06)
[2022-11-03] MEDS ORDERED: OMEP40CA5 (04:06)
[2022-11-03] MEDS ORDERED: ONDANSETRON 4MG 2ML VIAL IV ONE (05:05)
[2022-11-03] MEDS ORDERED: NS 1,000 ML IV ONE (05:05)
[2022-11-03 05:07] LABS: BASO % 0.2 % (0.0-1.0); EOS % 0.1 % (0.0-3.0); HEMATOCRIT 33.2 % (36.0-47.0); LYMPH # 1.2 10^3/uL (1.5-5.0); LYMPH % 9.2 % (24.0-44.0); MEAN CORPUSCULAR HEMOGLOBIN 30.2 pg (27.0-33.0); MEAN CORPUSCULAR HGB CONC 33.1 g/dl (32.0-36.5); MEAN CORPUSCULAR VOLUME 91.2 fl (80.0-96.0); MONO % 12.3 % (2.0-8.0); NEUTROPHILS # 10.3 10^3/uL (1.5-8.5); NEUTROPHILS % 77.8 % (36.0-66.0); PLATELET COUNT, AUTOMATED 178 10^3/uL (150-450); RED BLOOD COUNT 3.64 10^6/uL (4.00-5.40); WHITE BLOOD COUNT 13.2 10^3/uL (4.0-10.0)
[2022-11-03 05:20] LABS: MONO # 1.6 10^3/uL (0.0-0.8)
[2022-11-03 05:34] LABS: LIPASE 26 U/L (12-53)
[2022-11-03 05:36] LABS: ALBUMIN 3.6 G/DL (3.2-5.2); ALKALINE PHOSPHATASE 65 U/L (46-116); ALT/SGPT < 9 U/L (7.0-40); AST/SGOT 18 U/L (<34); BILIRUBIN,DIRECT 0.2 MG/DL (<0.4); BILIRUBIN,TOTAL 0.5 MG/DL (0.3-1.2); BLOOD UREA NITROGEN 20 MG/DL (9-23); CALCIUM LEVEL 8.3 MG/DL (8.3-10.6); CARBON DIOXIDE LEVEL 26 MMOL/L (20-31); CHLORIDE LEVEL 101 MMOL/L (98-107); CREATININE FOR GFR 1.39 MG/DL (0.55-1.30); GLOMERULAR FILTRATION RATE 39.1 (>39); GLUCOSE, FASTING 121 MG/DL (74-106); POTASSIUM SERUM 3.9 MMOL/L (3.5-5.1); SODIUM LEVEL 136 MMOL/L (136-145); TOTAL PROTEIN 6.1 G/DL (5.7-8.2)
[2022-11-03 07:27] VITALS: BP 92/54
== END 2022-11-03 07:29 | disposition home or self-care (01) ==
LOC: M ED 03:57
DX: R19.7 Diarrhea, unspecified (principal); I10 Essential (primary) hypertension; M54.50 Low back pain, unspecified; Z79.899 Other long term (current) drug therapy
CPT/HCPCS: 80048; 80076; 83605; 83690; 85025; 87324; 96374; 99284; J2405

== ENCOUNTER → 2022-11-03 | Outpatient (REF) | payer MEDICARE, BC ==
[~2022-11-03] MED LIST changes: +ACET300T47; +OMEP40CA5
[2022-11-04 14:05] LABS: CLOSTRIDIUM DIFFICILE PCR POSITIVE (NEGATIVE)
== END ==
LOC: M SFHCPLAZ 11:35
PROVIDERS: ATTEND Internal Medicine Infectious Disease
DX: A04.72 Enterocolitis due to Clostridium difficile, not specified as recurrent (principal)

== ENCOUNTER → 2022-12-16 | Outpatient (CLI) | payer MEDICARE, BC ==
[~2022-12-16] MED LIST changes: +ACET300T47; +OMEP40CA5; -ROSU20TA5 PO; +ROSU20TA61 PO
[2022-12-16 12:16] LABS: HEMATOCRIT 36.9 % (36.0-47.0); HEMOGLOBIN 11.6 g/dl (12.0-15.5); MEAN CORPUSCULAR HEMOGLOBIN 29.6 pg (27.0-33.0); MEAN CORPUSCULAR HGB CONC 31.4 g/dl (32.0-36.5); MEAN CORPUSCULAR VOLUME 94.1 fl (80.0-96.0); PLATELET COUNT, AUTOMATED 194 10^3/uL (150-450); RED BLOOD COUNT 3.92 10^6/uL (4.00-5.40); WHITE BLOOD COUNT 5.8 10^3/uL (4.0-10.0)
[2022-12-16 12:46] LABS: ALBUMIN 3.9 G/DL (3.2-5.2); ALKALINE PHOSPHATASE 83 U/L (46-116); ALT/SGPT 11 U/L (7.0-40); AST/SGOT < 8 U/L (<34); BILIRUBIN,TOTAL 0.3 MG/DL (0.3-1.2); BLOOD UREA NITROGEN 30 MG/DL (9-23); CALCIUM LEVEL 8.9 MG/DL (8.3-10.6); CARBON DIOXIDE LEVEL 30 MMOL/L (20-31); CHLORIDE LEVEL 105 MMOL/L (98-107); CHOLESTEROL LEVEL 144 MG/DL (<200); CHOLESTEROL RISK RATIO 2.22 (<5); CREATININE FOR GFR 1.12 MG/DL (0.55-1.30); GLOMERULAR FILTRATION RATE 50.1 (>39); GLUCOSE, FASTING 102 MG/DL (74-106); HDL CHOLESTEROL 64.7 MG/DL (>40); IRON (FE) 63 UG/DL (50-170); LDL CHOLESTEROL 55.1 MG/DL (<100); NON-HDL-C 79.3 MG/DL; PERCENT SATURATION 19.1 % (13.2-45.0); POTASSIUM SERUM 4.4 MMOL/L (3.5-5.1); SODIUM LEVEL 139 MMOL/L (136-145); TOTAL IRON BINDING CAPACITY 330 UG/DL (250-425); TOTAL PROTEIN 6.7 G/DL (5.7-8.2); TRIGLYCERIDES LEVEL 121 MG/DL (<150)
[2022-12-16 12:47] LABS: FREE T4 1.18 NG/DL (0.89-1.76); THYROID STIMULATING HORMONE 3.058 uIU/ML (0.55-4.78)
[2022-12-16 12:48] LABS: TOTAL T3 94.3 NG/DL (60.0-181.0)
== END ==
LOC: M RAD 11:23
PROVIDERS: ATTEND Family Medicine
DX: J44.9 Chronic obstructive pulmonary disease, unspecified (principal); R53.83 Other fatigue; E03.9 Hypothyroidism, unspecified; Z79.899 Other long term (current) drug therapy

== ENCOUNTER → 2023-01-09 | Outpatient (CLI) | payer MEDICARE, BC | LOC: M WHC 11:07 | PROVIDERS: ATTEND Family Medicine | DX: Z12.31 Encounter for screening mammogram for malignant neoplasm of breast (principal) ==

== ENCOUNTER 2024-01-20 23:37 | Emergency (ER) | payer MEDICARE, BC ==
[~2024-01-20] VITALS: Ht 157.5 cm; Wt 52.4 kg
[~2024-01-20 23:37] MED LIST changes: +DICL100G10 TOP; -DICL1GEL3 TOP; -VANC125C10 PO; +VANC125C12 PO
[2024-01-21 00:51] LABS: BASO % 0.2 % (0.0-1.0); EOS % 0.1 % (0.0-3.0); HEMATOCRIT 33.4 % (36.0-47.0); HEMOGLOBIN 11.1 g/dl (12.0-15.5); LYMPH # 2.1 10^3/uL (1.5-5.0); MEAN CORPUSCULAR HEMOGLOBIN 30.2 pg (27.0-33.0); MEAN CORPUSCULAR HGB CONC 33.2 g/dl (32.0-36.5); MEAN CORPUSCULAR VOLUME 90.8 fl (80.0-96.0); MONO # 0.6 10^3/uL (0.0-0.8); MONO % 7.5 % (2.0-8.0); NEUTROPHILS # 5.4 10^3/uL (1.5-8.5); NEUTROPHILS % 65.5 % (36.0-66.0); PLATELET COUNT, AUTOMATED 209 10^3/uL (150-450); RED BLOOD COUNT 3.68 10^6/uL (4.00-5.40); WHITE BLOOD COUNT 8.2 10^3/uL (4.0-10.0)
[2024-01-21 01:09] LABS: CK-MB VALUE MASS < 1.0 NG/ML (<3.6)
[2024-01-21 01:11] LABS: CPK CREATINE PHOSPHOKINASE 47 U/L (34-145); MB/CK RELATIVE INDEX 2.12 (< OR =4)
[2024-01-21 01:48] LABS: ETHYL ALCOHOL (ETHANOL) < 0.003 % (0.000-0.010)
[2024-01-21 01:50] LABS: BLOOD UREA NITROGEN 15 MG/DL (9-23); CALCIUM LEVEL 8.3 MG/DL (8.3-10.6); CARBON DIOXIDE LEVEL 21 MMOL/L (20-31); CHLORIDE LEVEL 102 MMOL/L (98-107); CREATININE FOR GFR 1.02 MG/DL (0.55-1.30); GLOMERULAR FILTRATION RATE 55.7 (>39); GLUCOSE, FASTING 119 MG/DL (74-106); POTASSIUM SERUM 3.6 MMOL/L (3.5-5.1); SODIUM LEVEL 135 MMOL/L (136-145)
[2024-01-21 01:52] LABS: THYROID STIMULATING HORMONE 2.868 uIU/ML (0.55-4.78)
[2024-01-21 02:18] LABS: CK-MB VALUE MASS < 1.0 NG/ML (<3.6)
[2024-01-21] MEDS: METOCLOPRAMIDE INJ 10MG/2ML VIAL IV ONE (02:33)
[2024-01-21] MEDS: NS 1,000 ML IV ONE (02:38)
[2024-01-21 02:46] LABS: CPK CREATINE PHOSPHOKINASE 35 U/L (34-145); MB/CK RELATIVE INDEX 2.85 (< OR =4)
[2024-01-21 02:47] LABS: LIPASE 44 U/L (12-53)
[2024-01-21 02:50] LABS: ALBUMIN 3.5 G/DL (3.2-5.2); ALKALINE PHOSPHATASE 67 U/L (46-116); ALT/SGPT 9 U/L (7.0-40); AST/SGOT 24 U/L (<34); BILIRUBIN,DIRECT 0.1 MG/DL (<0.4); BILIRUBIN,TOTAL 0.3 MG/DL (0.3-1.2); TOTAL PROTEIN 6.8 G/DL (5.7-8.2)
[2024-01-21 05:45] VITALS: BP 129/67; TEMP 98; O2SAT 95
[2024-01-21] MEDS ORDERED: REGL10TA6 PO (05:53)
== END 2024-01-21 06:31 | disposition home or self-care (01) ==
LOC: M ED 23:37 → EDBD 23:37 → M ED 01-21 06:31
DX: I95.1 Orthostatic hypotension (principal); U07.1 COVID-19; E78.5 Hyperlipidemia, unspecified; J45.909 Unspecified asthma, uncomplicated; G47.00 Insomnia, unspecified; F32.A Depression, unspecified; E03.9 Hypothyroidism, unspecified; Z79.899 Other long term (current) drug therapy
CPT/HCPCS: 80048; 80076; 81001; 82077; 82550; 82553; 83605; 83690; 84443; 84484; 85025; 87086; 93005; 93041; 94760; 96361; 96374; 99285; J2765

== ENCOUNTER → 2024-02-22 | Outpatient (CLI) | payer MEDICARE, BC ==
[~2024-02-22] MED LIST changes: +REGL10TA6 PO
[2024-02-22 10:02] LABS: HEMATOCRIT 38.5 % (36.0-47.0); MEAN CORPUSCULAR HEMOGLOBIN 29.3 pg (27.0-33.0); MEAN CORPUSCULAR HGB CONC 31.2 g/dl (32.0-36.5); MEAN CORPUSCULAR VOLUME 94.1 fl (80.0-96.0); PLATELET COUNT, AUTOMATED 219 10^3/uL (150-450); RED BLOOD COUNT 4.09 10^6/uL (4.00-5.40); WHITE BLOOD COUNT 6.8 10^3/uL (4.0-10.0)
[2024-02-22 10:36] LABS: IRON (FE) 72 UG/DL (50-170); PERCENT SATURATION 23.9 % (13.2-45.0); TOTAL IRON BINDING CAPACITY 301 UG/DL (250-425)
[2024-02-22 10:38] LABS: HEMOGLOBIN A1c 5.7 % (4.0-6.0); THYROID STIMULATING HORMONE 2.804 uIU/ML (0.55-4.78)
[2024-02-22 10:39] LABS: TOTAL 25(OH) VITAMIN D 73.7 NG/ML (20.0-100.0)
[2024-02-22 10:41] LABS: ALBUMIN 3.8 G/DL (3.2-5.2); ALKALINE PHOSPHATASE 91 U/L (46-116); ALT/SGPT < 9 U/L (7.0-40); AST/SGOT 21 U/L (<34); BILIRUBIN,TOTAL 0.4 MG/DL (0.3-1.2); BLOOD UREA NITROGEN 12 MG/DL (9-23); CALCIUM LEVEL 9.8 MG/DL (8.3-10.6); CARBON DIOXIDE LEVEL 30 MMOL/L (20-31); CHLORIDE LEVEL 109 MMOL/L (98-107); CHOLESTEROL LEVEL 154 MG/DL (<200); CHOLESTEROL RISK RATIO 2.81 (<5); CREATININE FOR GFR 1.11 MG/DL (0.55-1.30); GLOMERULAR FILTRATION RATE 50.5 (>39); GLUCOSE, FASTING 85 MG/DL (74-106); HDL CHOLESTEROL 54.7 MG/DL (>40); LDL CHOLESTEROL 60.5 MG/DL (<100); NON-HDL-C 99.3 MG/DL; POTASSIUM SERUM 4.8 MMOL/L (3.5-5.1); SODIUM LEVEL 142 MMOL/L (136-145); TOTAL PROTEIN 7.1 G/DL (5.7-8.2); TRIGLYCERIDES LEVEL 194 MG/DL (<150)
== END ==
LOC: M PLALAB 08:49
PROVIDERS: ATTEND Family Medicine
DX: R53.83 Other fatigue (principal); D64.9 Anemia, unspecified; E03.9 Hypothyroidism, unspecified; Z79.899 Other long term (current) drug therapy

== ENCOUNTER → 2024-09-22 | Outpatient (CLI) | payer MEDICARE, BC ==
[~2024-09-22] MED LIST changes: +GABA-1172 PO; -GABA-282 PO; -ROSU20TA61 PO; +ROSU20TA86 PO
[2024-09-22 09:46] LABS: HEMATOCRIT 36.3 % (36.0-47.0); HEMOGLOBIN 11.5 g/dl (12.0-15.5); MEAN CORPUSCULAR HEMOGLOBIN 29.7 pg (27.0-33.0); MEAN CORPUSCULAR HGB CONC 31.7 g/dl (32.0-36.5); MEAN CORPUSCULAR VOLUME 93.8 fl (80.0-96.0); PLATELET COUNT, AUTOMATED 227 10^3/uL (150-450); RED BLOOD COUNT 3.87 10^6/uL (4.00-5.40); WHITE BLOOD COUNT 6.2 10^3/uL (4.0-10.0)
[2024-09-22 10:10] LABS: HEMOGLOBIN A1c 4.9 % (4.0-6.0)
[2024-09-22 10:11] LABS: ALBUMIN 3.9 G/DL (3.2-5.2); ALKALINE PHOSPHATASE 71 U/L (35-104); ALT/SGPT < 9 U/L (7.0-40); AST/SGOT 16 U/L (<34); BILIRUBIN,TOTAL 0.4 MG/DL (0.3-1.2); BLOOD UREA NITROGEN 16 MG/DL (9-23); CALCIUM LEVEL 8.8 MG/DL (8.3-10.6); CARBON DIOXIDE LEVEL 28 MMOL/L (20-31); CHLORIDE LEVEL 102 MMOL/L (98-107); CHOLESTEROL LEVEL 159 MG/DL (<200); CHOLESTEROL RISK RATIO 1.88 (<5); CREATININE FOR GFR 1.09 MG/DL (0.55-1.30); GLOMERULAR FILTRATION RATE 51.7 (>39); GLUCOSE, FASTING 88 MG/DL (74-106); HDL CHOLESTEROL 84.4 MG/DL (>40); LDL CHOLESTEROL 47.6 MG/DL (<100); NON-HDL-C 74.6 MG/DL; POTASSIUM SERUM 4.4 MMOL/L (3.5-5.1); SODIUM LEVEL 138 MMOL/L (136-145); TOTAL PROTEIN 6.8 G/DL (5.7-8.2); TRIGLYCERIDES LEVEL 135 MG/DL (<150)
[2024-09-22 10:13] LABS: THYROID STIMULATING HORMONE 0.617 uIU/ML (0.55-4.78)
== END ==
LOC: M RAD 08:51
PROVIDERS: ATTEND Family Medicine
DX: J44.9 Chronic obstructive pulmonary disease, unspecified (principal); I10 Essential (primary) hypertension; R53.83 Other fatigue; Z79.899 Other long term (current) drug therapy

== ENCOUNTER → 2025-04-07 | Outpatient (REF) | payer MEDICARE, BC ==
[2025-04-07 18:06] LABS: BASO # 0.0 10^3/uL (0.0-0.2); BASO % 0.6 % (0.0-1.0); EOS # 0.1 10^3/uL (0.0-0.5); EOS % 0.8 % (0.0-3.0); LYMPH # 3.4 10^3/uL (1.5-5.0); LYMPH % 54.2 % (24.0-44.0); MONO # 0.8 10^3/uL (0.0-0.8); MONO % 12.3 % (2.0-8.0); NEUTROPHILS # 2.0 10^3/uL (1.5-8.5); NEUTROPHILS % 31.9 % (36.0-66.0); PLATELET COUNT, AUTOMATED 223 10^3/uL (150-450)
[2025-04-07 18:32] LABS: CALCIUM LEVEL 9.3 MG/DL (8.3-10.6); CARBON DIOXIDE LEVEL 29.0 MMOL/L (20-31); CHLORIDE LEVEL 102.0 MMOL/L (98-107); CREATININE FOR GFR 1.14 MG/DL (0.55-1.30); GLOMERULAR FILTRATION RATE 48.7 (>32); POTASSIUM SERUM 4.5 MMOL/L (3.5-5.1); SODIUM LEVEL 138.0 MMOL/L (136-145)
[2025-04-07 18:34] LABS: FREE T4 1.44 NG/DL (0.89-1.76); TOTAL 25(OH) VITAMIN D 66.4 NG/ML (20.0-100.0)
== END ==
LOC: M SFHCLERA 11:18
PROVIDERS: ATTEND Internal Medicine
DX: E03.8 Other specified hypothyroidism (principal); E56.8 Deficiency of other vitamins; Z79.899 Other long term (current) drug therapy